=== PATIENT | female | born 2000 | race American Indian/Alaskan Native ===

== ENCOUNTER 2021-12-03 20:52 | Emergency (ER) | payer SELFPAY ==
[2021-12-03] MEDS ORDERED: diphenhydrAMINE 25 MG Cap PO ONE (21:24)
== END 2021-12-03 22:27 | disposition home or self-care (01) ==
LOC: JP.ED 20:52
DX: S00.261A Insect bite (nonvenomous) of right eyelid and periocular area, initial encounter (principal); W57.XXXA Bitten or stung by nonvenomous insect and other nonvenomous arthropods, initial encounter
CPT/HCPCS: 99282; A9270

== ENCOUNTER 2022-08-23 19:50 | Emergency (ER) | payer SELFPAY ==
[2022-08-23] MEDS ORDERED: EPINEPHrine 1 MG/ML SDV IM ONE (20:09)
[2022-08-23] MEDS ORDERED: diphenhydrAMINE 50 MG/ML SDV IM ONE (20:09)
[2022-08-23] MEDS ORDERED: methylPREDNISolone Sodium Succinate 125 MG/2 ML SDV IM ONE (20:10)
== END 2022-08-23 22:40 | disposition home or self-care (01) ==
LOC: JP.ED 19:50
DX: T78.1XXA Other adverse food reactions, not elsewhere classified, initial encounter (principal); Z91.018 Allergy to other foods
CPT/HCPCS: 96372; 99284; J0171; J1200; J2930